=== PATIENT | female | born 1930 | race Caucasian/White ===

== ENCOUNTER 2017-01-13 22:41 | Emergency (ER) | payer OTHER, MEDICARE ==
[~2017-01-13] VITALS: Ht 154.9 cm; Wt 86.2 kg
[2017-01-13] MEDS ORDERED: PANT40TA2 PO (23:25)
[2017-01-13] MEDS ORDERED: CLINDAMYCIN PHOSPHATE IV 900 MG in IV DEXTROSE 5% 100 ML IV ONE (23:30)
[2017-01-13] MEDS ORDERED: ASPI81TA31 PO (23:32)
[2017-01-13] MEDS ORDERED: LEVO100T10 PO (23:32)
[2017-01-13] MEDS ORDERED: HYDROCHLOROTHIAZIDE PO (23:32)
[2017-01-13] MEDS ORDERED: SIMV20TA6 PO (23:32)
[2017-01-13] MEDS ORDERED: METO-302 PO (23:32)
[2017-01-13] MEDS ORDERED: CLINDAMYCIN PHOSPHATE 900 MG/6 ML VIAL ONE (23:55)
--- NOTE | 2017-01-14 00:42 | NUR ---
Patient discharged to home in stable conditon. Written and verbal after care instructions given. Patient verbalizes understanding of instructions.
== END 2017-01-14 00:43 | disposition home or self-care (01) ==
LOC: ER 22:42
DX: T21.25XA Burn of second degree of buttock, initial encounter (principal); I10 Essential (primary) hypertension; K21.9 Gastro-esophageal reflux disease without esophagitis; Z79.82 Long term (current) use of aspirin; Z88.2 Allergy status to sulfonamides; X58.XXXA Exposure to other specified factors, initial encounter; Y93.89 Activity, other specified; Y92.89 Other specified places as the place of occurrence of the external cause; Y99.8 Other external cause status
CPT/HCPCS: A4663; J3490; J7060